=== PATIENT | male | born 1970 | race Caucasian/White ===

== ENCOUNTER 2020-08-23 12:02 | Inpatient (IN) | payer OTHER ==
[~2020-08-23] VITALS: Ht 170.2 cm; Wt 105.7 kg
[2020-08-23 14:31] LABS: RED BLOOD COUNT 3.3 M/UL (4.20-5.50); WHITE BLOOD COUNT 8.4 K/UL (4.5-11.0)
[2020-08-23 15:23] LABS: BUN/CREATININE RATIO 14 (0-10)
[2020-08-23] MEDS ORDERED: BUMETANIDE0.5 MG PO (21:12)
[2020-08-23] MEDS ORDERED: HYDROCHLOROTHIA25 MG PO (21:13)
[2020-08-23] MEDS ORDERED: SEROQUEL TAB 2525 MG PO (21:13)
[2020-08-23] MEDS ORDERED: ELAVIL 25 MG TA25 MG PO (21:14)
[2020-08-23] MEDS ORDERED: COZAAR100 MG PO (21:14)
[2020-08-23] MEDS ORDERED: DAILY MULTIPLE1 EAC1 PO (21:18)
[2020-08-23] MEDS ORDERED: ROCEPHIN 2 GM AD2 GM IV (21:59)
[2020-08-23] MEDS ORDERED: VANCOMYCIN IV (22:05)
[2020-08-24 04:02] LABS: HEMOGLOBIN 11.5 gm/dl (14.0-17.5); RED BLOOD COUNT 3.42 M/UL (4.20-5.50); WHITE BLOOD COUNT 7.6 K/UL (4.5-11.0)
[2020-08-24 04:20] LABS: BUN/CREATININE RATIO 11 (0-10)
--- NOTE | 2020-08-24 15:31 | NUR ---
CALLED TO MAKE HER AWARE OF 23.20 COPAY , ALSO GAVE REPORT TO VIDA AT [facility] AT THIS TIME ,
--- NOTE | 2020-08-24 18:28 | NUR ---
1800 PT LEFT TO SX NOTED VIA BED
[2020-08-25 05:59] LABS: HEMOGLOBIN 11.1 gm/dl (14.0-17.5); RED BLOOD COUNT 3.27 M/UL (4.20-5.50); WHITE BLOOD COUNT 5.7 K/UL (4.5-11.0)
[2020-08-25 07:18] LABS: BUN/CREATININE RATIO 10 (0-10)
[2020-08-26 05:11] LABS: HIV SCREEN 4TH GENERATION WRFX Non Reactive (Non Reactive)
[2020-08-26 06:11] LABS: HBSAG SCREEN Negative (Negative); HEP A AB, IGM Negative (Negative); HEP B CORE AB, IGM Negative (Negative); HEP C VIRUS AB 0.1 (0.0-0.9); RPR Non Reactive (Non Reactive)
[2020-08-27 06:58] LABS: HEMOGLOBIN 11.6 gm/dl (14.0-17.5); RED BLOOD COUNT 3.5 M/UL (4.20-5.50)
[2020-08-27 07:02] LABS: WHITE BLOOD COUNT 7.5 K/UL (4.5-11.0)
[2020-08-27 07:23] LABS: BUN/CREATININE RATIO 10 (0-10)
[2020-08-28 06:06] LABS: HEMOGLOBIN 10.9 gm/dl (14.0-17.5); RED BLOOD COUNT 3.38 M/UL (4.20-5.50); WHITE BLOOD COUNT 6.9 K/UL (4.5-11.0)
[2020-08-28 07:28] LABS: BUN/CREATININE RATIO 12 (0-10)
[2020-08-29 06:59] LABS: HEMOGLOBIN 11.1 gm/dl (14.0-17.5); RED BLOOD COUNT 3.34 M/UL (4.20-5.50); WHITE BLOOD COUNT 7.1 K/UL (4.5-11.0)
[2020-08-29 07:13] LABS: BUN/CREATININE RATIO 11 (0-10)
--- NOTE | 2020-08-29 17:57 | NUR ---
1300 EUSEBIA FROM [facility] ATTENDANT PLACED A PICC LINE TO RIGHT UPPER ARM WITHOUT DIFFICULTY.. 1415 EUSEBIA CALLED AND GAVE ORDER TO USE PICC LINE
[2020-08-30 05:14] LABS: HEMOGLOBIN 11.2 gm/dl (14.0-17.5); RED BLOOD COUNT 3.39 M/UL (4.20-5.50); WHITE BLOOD COUNT 6.7 K/UL (4.5-11.0)
[2020-08-30 05:36] LABS: BUN/CREATININE RATIO 12 (0-10)
[2020-08-31 04:07] LABS: HEMOGLOBIN 11.4 gm/dl (14.0-17.5); RED BLOOD COUNT 3.43 M/UL (4.20-5.50); WHITE BLOOD COUNT 7.7 K/UL (4.5-11.0)
[2020-08-31 04:40] LABS: BUN/CREATININE RATIO 15 (0-10)
[2020-09-01 04:30] LABS: HEMOGLOBIN 10.8 gm/dl (14.0-17.5); RED BLOOD COUNT 3.27 M/UL (4.20-5.50); WHITE BLOOD COUNT 6.6 K/UL (4.5-11.0)
[2020-09-01 04:57] LABS: BUN/CREATININE RATIO 19 (0-10)
[2020-09-01] MEDS ORDERED: VITAMIN B-1100 M1 PO (11:11)
[2020-09-01] MEDS ORDERED: VITAMIN C 500500 MG PO (11:11)
[2020-09-01] MEDS ORDERED: ERTAPENEM1 GM IM (11:11)
[2020-09-01] MEDS ORDERED: FLORASTOR250 MG PO (11:11)
[2020-09-01] MEDS ORDERED: FOLIC ACID 1 MG1 MG PO (11:11)
[2020-09-01] MEDS ORDERED: VANCOMYCIN IV (11:25)
[2020-09-01] MEDS ORDERED: ERTAPENEM1 GM IV (11:25)
[2020-09-01] MEDS ORDERED: ZINC50 MG PO (11:25)
--- NOTE | 2020-09-01 15:14 | NUR ---
REPORT CALLED TO ELIDA AT [facility]. DAUGHTER NOTIFIED OF D/C. DAUGHTER, DORITA TO TRANSPORT PATIENT TO [facility]
== END 2020-09-01 16:29 | DRG 40 ==
LOC: ER1 12:02 → CDU 17:55 → M/S 17:55
PROVIDERS: Internal Medicine; Physician Assistant Medical; Surgery; ADMIT Internal Medicine
PROC: 0JD70ZZ Extraction of Back Subcutaneous Tissue and Fascia, Open Approach (ICD-10-PCS; principal; 2020-08-24 20:53)
PROC: 02HV33Z Insertion of Infusion Device into Superior Vena Cava, Percutaneous Approach (ICD-10-PCS; 2020-08-29)
PROC: B548ZZA Ultrasonography of Superior Vena Cava, Guidance (ICD-10-PCS; 2020-08-29)
DX: G91.0 Communicating hydrocephalus (principal); L89.154 Pressure ulcer of sacral region, stage 4; G93.41 Metabolic encephalopathy; I96 Gangrene, not elsewhere classified; G93.89 Other specified disorders of brain; Z20.828 Contact with and (suspected) exposure to other viral communicable diseases; E66.9 Obesity, unspecified; R53.81 Other malaise; F10.10 Alcohol abuse, uncomplicated; F15.10 Other stimulant abuse, uncomplicated; K70.9 Alcoholic liver disease, unspecified; I10 Essential (primary) hypertension; D63.8 Anemia in other chronic diseases classified elsewhere; R97.20 Elevated prostate specific antigen [PSA]; Z68.36 Body mass index [BMI] 36.0-36.9, adult; Z79.899 Other long term (current) drug therapy
CPT/HCPCS: 36415; 70450; 70551; 71045; 76705; 80048; 80053; 80074; 80202; 81001; 82140; 82607; 82746; 83036; 83540; 83550; 83605; 83735; 84132; 84439; 84443; 85025; 85027; 85610; 85652; 86140; 86592; 87040; 87086; 87389; 96365; 96366; 96367; 96372; 96375; 97161; 97166; 99285; J1335; J1650; J2001; J2185; J2250; J2270; J2405; J2543; J2704; J3010; J3370; J7030; J7070; J7120; Q9967; U0002

== ENCOUNTER → 2020-11-11 | Outpatient (CLI) | payer OTHER ==
[~2020-11-11] MED LIST: BUMETANIDE0.5 MG PO; COZAAR100 MG PO; DAILY MULTIPLE1 EAC1 PO; ELAVIL 25 MG TA25 MG PO; ERTAPENEM1 GM IM; ERTAPENEM1 GM IV; FLORASTOR250 MG PO; FOLIC ACID 1 MG1 MG PO; HYDROCHLOROTHIA25 MG PO; ROCEPHIN 2 GM AD2 GM IV; SEROQUEL TAB 2525 MG PO; VANCOMYCIN IV; VITAMIN B-1100 M1 PO; VITAMIN C 500500 MG PO; ZINC50 MG PO
== END ==
LOC: WCC 08:59
PROC: 0JB70ZZ Excision of Back Subcutaneous Tissue and Fascia, Open Approach (ICD-10-PCS; principal; 2020-11-11)
DX: I96 Gangrene, not elsewhere classified (principal); L89.154 Pressure ulcer of sacral region, stage 4; F10.11 Alcohol abuse, in remission; G91.4 Hydrocephalus in diseases classified elsewhere; R53.81 Other malaise; R41.82 Altered mental status, unspecified; G62.9 Polyneuropathy, unspecified; I10 Essential (primary) hypertension; E66.09 Other obesity due to excess calories; Z68.37 Body mass index [BMI] 37.0-37.9, adult; Z79.899 Other long term (current) drug therapy; Z79.2 Long term (current) use of antibiotics
CPT/HCPCS: G0463

== ENCOUNTER → 2020-11-18 | Outpatient (CLI) | payer OTHER | LOC: WCC 07:29 | PROC: 0JB70ZZ Excision of Back Subcutaneous Tissue and Fascia, Open Approach (ICD-10-PCS; principal; 2020-11-18) | DX: I96 Gangrene, not elsewhere classified (principal); L89.154 Pressure ulcer of sacral region, stage 4; F10.11 Alcohol abuse, in remission; R41.82 Altered mental status, unspecified; G91.4 Hydrocephalus in diseases classified elsewhere; R53.81 Other malaise; I10 Essential (primary) hypertension; G62.9 Polyneuropathy, unspecified; E66.09 Other obesity due to excess calories; Z68.37 Body mass index [BMI] 37.0-37.9, adult; Z79.899 Other long term (current) drug therapy ==

== ENCOUNTER → 2020-11-25 | Outpatient (CLI) | payer OTHER | LOC: WCC 09:28 | PROC: 0JB70ZZ Excision of Back Subcutaneous Tissue and Fascia, Open Approach (ICD-10-PCS; principal; 2020-11-25) | DX: I96 Gangrene, not elsewhere classified (principal); L89.154 Pressure ulcer of sacral region, stage 4; F10.11 Alcohol abuse, in remission; R41.82 Altered mental status, unspecified; G91.4 Hydrocephalus in diseases classified elsewhere; I10 Essential (primary) hypertension; R53.81 Other malaise; G62.9 Polyneuropathy, unspecified; E66.09 Other obesity due to excess calories; Z68.37 Body mass index [BMI] 37.0-37.9, adult; Z79.899 Other long term (current) drug therapy ==

== ENCOUNTER → 2020-12-26 | Outpatient (CLI) | payer OTHER | LOC: WCC 15:00 | DX: L89.154 Pressure ulcer of sacral region, stage 4 (principal); F10.11 Alcohol abuse, in remission; R41.82 Altered mental status, unspecified; G91.4 Hydrocephalus in diseases classified elsewhere; R53.81 Other malaise; E66.09 Other obesity due to excess calories | CPT/HCPCS: G0463 ==

== ENCOUNTER → 2021-01-06 | Outpatient (CLI) | payer OTHER | LOC: WCC 09:00 | DX: L89.154 Pressure ulcer of sacral region, stage 4 (principal); F10.11 Alcohol abuse, in remission; R41.82 Altered mental status, unspecified; G91.4 Hydrocephalus in diseases classified elsewhere; R53.81 Other malaise; E66.09 Other obesity due to excess calories | CPT/HCPCS: G0463 ==